=== PATIENT | male | born 1975 | race Caucasian/White ===

== ENCOUNTER → 2019-02-26 | Outpatient (CLI) | payer OTHER ==
[~2019-02-26] MED LIST: ACETAMINOPHEN; AUGMENTIN 875875 MG PO; BACTRIM; BACTRIM DS TAB1 EACH PO; BACTROBAN CREAM30 GM TOP; CLEOCIN HCL300 MG PO; HYDROCODONE-AP1 EAC6 PO; IBUPROFEN 800800 M1 PO; IBUPROFEN200 M2 PO; NOHOMEMEDICATIONS; OXYIR5 MG PO; PREDNISONE 20 M20 MG PO; ZYVOX600 MG PO; [UNRECOGNIZED DRUG - OTHER] MM
== END ==
LOC: M.RAD 13:42
DX: K92.0 Hematemesis (principal)